=== PATIENT | male | born 1980 | race Caucasian/White ===

== ENCOUNTER 2021-09-27 14:28 | Emergency (ER) | payer OTHER ==
[~2021-09-27] VITALS: Ht 182.9 cm; Wt 74.8 kg
[2021-09-27] MEDS ORDERED: LORAZEPAM 2 MG/1 ML VIAL IM ONE (14:45)
[2021-09-27] MEDS ORDERED: HALOPERIDOL LACTATE 5 MG/1 ML VIAL IM ONE (14:45)
[2021-09-27] MEDS ORDERED: diphenhydrAMINE 50 MG/1 ML VIAL IM ONE (14:45)
--- NOTE | 2021-09-27 14:48 | NUR ---
PT IS IN ROOM #2A. DR MENDEZ EVALUATED THE PT.
[2021-09-27] MEDS ORDERED: HALOPERIDOL LACTATE 5 MG/1 ML VIAL ONE (14:50)
[2021-09-27] MEDS ORDERED: LORAZEPAM 2 MG/1 ML VIAL ONE (14:50)
[2021-09-27] MEDS ORDERED: diphenhydrAMINE 50 MG/1 ML VIAL ONE (14:50)
[2021-09-27] MEDS ORDERED: OLANZAPINE 10 MG VIAL IM ONE ×2 (16:24→16:30)
--- NOTE | 2021-09-27 18:57 | NUR ---
RADHA, CRISIS OFFICE MACHINE SERVICER APPRENTICE EVALUATED THE PT. [facility] WAS CALLED FOR PT's TRANSFER. [facility] CALLED BACK. DR MENDEZ TALKED TO DR CANO FROM [facility] TO DISCUSS PT's DIAGNOSIS.
[2021-09-27 19:09] LABS: HEMATOCRIT 40.5 % (36.7-47.1); MEAN CORPUSCULAR HEMOGLOBIN 30.8 uug (23.8-33.4); MEAN CORPUSCULAR VOLUME 89.7 fL (73.0-96.2); PLATELET COUNT (AUTO) 265 K/uL (152-348)
[2021-09-27 19:12] LABS: CARBON DIOXIDE 24 mmol/L (21-32); CHLORIDE 104 mmol/L (98-107); CREATININE 0.8 mg/dL (0.6-1.3); GLUCOSE 98 mg/dL (74-106); POTASSIUM 3.7 mmol/L (3.5-5.1); UREA NITROGEN, BLOOD 9 mg/dL (7-18)
[2021-09-27 19:32] LABS: ALANINE AMINOTRANSFERASE 24 U/L (16-63); ALKALINE PHOSPHATASE 49 U/L (50-136); ASPARTATE AMINOTRANSFERASE 14 U/L (15-37); BILIRUBIN,DIRECT 0.1 mg/dL (0.0-0.2); BILIRUBIN,TOTAL 0.5 mg/dL (0.2-1.0); CREATINE KINASE, TOTAL 549 U/L (39-308); TOTAL PROTEIN, SERUM 7.1 g/dL (6.4-8.2)
[2021-09-27 19:34] LABS: ACETAMINOPHEN < 2.0 ug/mL (10-30); ETHANOL < 3 MG/DL (0-0); THYROID STIMULATING HORMONE 2.066 mIU/mL (0.358-3.740)
[2021-09-27] MEDS ORDERED: LORA0.5T48 PO (20:47)
--- NOTE | 2021-09-27 20:50 | NUR ---
Dr. Esposito reevaluted pt and determined pt is able to go home. Pt denies anxiety.
--- NOTE | 2021-09-27 20:51 | NUR ---
Patient discharged to home in stable condition. Written and verbal after care instructions given. Patient verbalizes understanding of instructions. Stressed follow up or return to ER for worsening s/s.
[2021-09-27 21:01] VITALS: BP 129/72
== END 2021-09-27 20:51 | disposition home or self-care (01) ==
LOC: ER 14:31
DX: R41.82 Altered mental status, unspecified (principal); R94.31 Abnormal electrocardiogram [ECG] [EKG]; Z81.8 Family history of other mental and behavioral disorders; F41.9 Anxiety disorder, unspecified; Z88.6 Allergy status to analgesic agent; Z82.49 Family history of ischemic heart disease and other diseases of the circulatory system; Z20.822 Contact with and (suspected) exposure to COVID-19
CPT/HCPCS: 36415; 71045; 80048; 80076; 80299; 80320; 82550; 84443; 84484; 85025; 87426; 93005; 96372 ×2; 99285; J1200; J1630; J2060; 70030-TC; A4663; G0480; J2358